=== PATIENT | male | born 1980 | race Hispanic/Latino ===

== ENCOUNTER 2017-06-17 10:07 | Emergency (ER) | payer SELFPAY ==
[2017-06-17 10:23] LABS: BASOPHILS % (AUTO) 0.6 % (0.0-5.0); HEMATOCRIT 40.5 % (42-54); LYMPHOCYTES % (AUTO) 47.3 % (21.0-51.0); MEAN CORPUSCULAR HEMOGLOBIN 32.4 pg (27.0-33.0); MEAN CORPUSCULAR HGB CONC 35.2 g/dL (32.0-36.0); MEAN CORPUSCULAR VOLUME 92.2 fL (79-99); MONOCYTES % (AUTO) 4.9 % (3.0-13.0); NEUTROPHILS % (AUTO) 45.2 % (40.0-77.0); PLATELET COUNT (AUTO) 280 K/uL (130-400); RED CELL DISTRIBUTION WIDTH 13.1 % (11.0-15.5); WHITE BLOOD COUNT (AUTO) 7.6 K/uL (4.8-10.8)
[2017-06-17 10:31] LABS: CREATININE 0.8 mg/dL (0.5-1.5); POTASSIUM 3.3 mmol/L (3.5-5.1)
[2017-06-17] MEDS ORDERED: MORPHINE SULFATE 8 MG/ML VIAL ONE (10:32)
[2017-06-17] MEDS ORDERED: TETANUS/DIPHTHERIA TOXOID [ADULT] 0.5 ML VIAL IM ONE (10:33)
[2017-06-17 10:35] LABS: ALBUMIN 3.8 g/dL (3.5-5.0); BILIRUBIN,TOTAL 0.8 mg/dL (0.2-1.0); TOTAL PROTEIN, SERUM 7.2 g/dL (6.0-8.3)
[2017-06-17] MEDS ORDERED: CEFAZOLIN SODIUM 1 GM VIAL ONE (12:27)
[2017-06-17] MEDS ORDERED: SODIUM CHLORIDE 0.9% 100 ML IV ONE (12:27)
[2017-06-17] MEDS ORDERED: ONDANSETRON HCL 4 MG/2 ML VIAL ONE (12:41)
[2017-06-17] MEDS ORDERED: OCTYL 2-CYANOACRYLATE 1 EACH TP ONE (13:05)
== END 2017-06-17 13:55 | disposition short-term general hospital (02) ==
LOC: EDH 10:07
DX: S02.81XA Fracture of other specified skull and facial bones, right side, initial encounter for closed fracture (principal); S52.591A Other fractures of lower end of right radius, initial encounter for closed fracture; S52.592A Other fractures of lower end of left radius, initial encounter for closed fracture; S01.311A Laceration without foreign body of right ear, initial encounter; W17.89XA Other fall from one level to another, initial encounter; Y93.89 Activity, other specified; Y92.89 Other specified places as the place of occurrence of the external cause; Y99.8 Other external cause status
CPT/HCPCS: 29125; 36415; 70450; 70486; 71045; 72125; 73130 ×2; 80053; 85025; 86850; 86900; 86901; 90471; 90714; 96361; 96365; 96374; 96375; 99291; J0690; J2270; J2405